=== PATIENT | male | born 1990 | race African-American/Black ===

== ENCOUNTER 2016-12-20 05:37 | Emergency (ER) | payer MEDICAID, OTHER ==
[~2016-12-20] VITALS: Ht 182.9 cm; Wt 90.0 kg
[~2016-12-20 05:37] MED LIST: BACTDS PO; CEPH-443 PO; HYDR-906 PO; IBUP-1542 PO; PEN500 PO
[2016-12-20 05:39] VITALS: Ht 182.9 cm; Wt 90.0 kg
[2016-12-20] MEDS ORDERED: CEPH-443 PO (06:15)
[2016-12-20] MEDS ORDERED: NAPR-260 PO (06:15)
[2016-12-20] MEDS ORDERED: SULF1TAB31 PO (06:15)
--- NOTE | 2016-12-20 06:21 | ERD ---
ER Documentation Chief Complaint Date/Time DATE: 12/20/16 TIME: 06:17 Chief Complaint abscess both axilla HPI 26 yo male comes in with bilateral axilla abscesses that started about a week ago. Patient states that he has 2 small areas on his right axilla and one on the left, slightly painful, achy, nonradiating and growing slowly in size. He has not had any fevers or chills. No vomiting. ROS All systems reviewed and are negative except as per history of present illness. Medications Home Meds Active Scripts Naproxen* (Naprosyn*) 500 Mg Tablet, 500 MG PO BID Y for PAIN AND/OR INFLAMMATION, #30 TAB Prov:MARQUES JACKSON PA-C 12/20/16 Sulfamethoxazole/Trimethoprim* (Bactrim Ds* Tablet) 1 Each Tablet, 1 TAB PO BID , #14 TAB Prov:MARQUES JACKSON PA-C 12/20/16 Cephalexin* (Keflex*) 500 Mg Capsule, 500 MG PO QID for 7 Days, CAP Prov:MARQUES JACKSON PA-C 12/20/16 Hydrocodone/Acetaminophen (Elkins 5-325 Tablet) 1 Each Tablet, 1 TAB PO Q6H Y for SEVERE PAIN LEVEL 7-10, #20 TAB Prov:CHARLES CHONG NP 01/28/16 Ibuprofen* (Motrin*) 600 Mg Tab, 600 MG PO Q6H Y for PAIN AND OR ELEVATED TEMP, #30 TAB Prov:CHARLES CHONG NP 01/28/16 Cephalexin* (Keflex*) 500 Mg Capsule, 500 MG PO QID for 10 Days, #39 CAP Prov:CHARLES CHONG NP 01/28/16 Sulfamethoxazole-Trimethoprim* (Bactrim* DS) 800-160 Mg Tab, 1 TAB PO BID for 5 Days, #19 TAB Prov:CHARLES CHONG NP 01/28/16 Sulfamethoxazole-Trimethoprim* (Bactrim* DS) 800-160 Mg Tab, 1 TAB PO BID for 7 Days, TAB Prov:MARQUES JACKSON PA-C 04/27/15 Cephalexin* (Keflex*) 500 Mg Capsule, 500 MG PO QID for 7 Days, CAP Prov:MARQUES JACKSON PA-C 04/27/15 Penicillin V Potassium* (Penicillin V K*) 500 Mg Tab, 500 MG PO QID for 10 Days , TAB Prov:MARQUES JACKSON PA-C 02/25/15 Allergies Allergies: Coded Allergies: No Known Allergy (Unverified , 01/28/16) PMhx/Soc History of Surgery: No Anesthesia Reaction: No Hx Neurological Disorder: No Hx Respiratory Disorders: No Hx Cardiac Disorders: No Hx Psychiatric Problems: No Hx Miscellaneous Medical Probl: No Hx Alcohol Use: No Hx Substance Use: No Hx Tobacco Use: No Smoking Status: Never smoker Physical Exam Vitals Vital Signs Date Time Temp Pulse Resp B/P Pulse Ox O2 Delivery O2 Flow Rate FiO2 12/20/16 05:39 97.3 78 20 128/65 100 Physical Exam General: Well-developed, well-nourished. The patient appears in no acute distress. HEENT: Head is normocephalic, atraumatic. No scleral icterus. Neck: Supple. Nontender. Lungs: Clear to auscultation. Normal air movement. Heart: Regular rate and rhythm. S1 and S2 are normal. No murmurs, gallops, or rubs. Abdomen: Nondistended. Extremities: No clubbing or cyanosis. Moving extremities x 4. No weakness. Neurologic: Alert and oriented 3. No focal deficits. Normal speech and gait. Skin: 2 1 cm areas that are indurated in the right axilla, there is one in the left, there is no erythema overlying the area, there is no fluctuance. No lymphatic streaking.. Procedures/MDM 26-year-old male presents with bilateral axillary abscesses, there is small in size, nonfluctuant. He has had this before, and I believe the patient can appropriately be treated and discharged with p.o. antibiotics. There is no lymphatic streaking, no systemic effects, no abscess underwent incision and drainage at this time. He was advised to do warm compresses, if he has any evidence of an abscess that becomes red, more swollen that may warrant incision and drainage, or worsening symptoms that he may return. Departure Diagnosis: Primary Impression: Abscess Condition: Good Patient Instructions: Abscess, Antiobiotic Treatment Only Additional Instructions: Follow up in 2 days in your clinic for wound check. MARQUES JACKSON PA-C Dec 20, 2016 06:21
== END 2016-12-20 06:58 | disposition home or self-care (01) ==
LOC: FTE 05:37
DX: L02.412 Cutaneous abscess of left axilla (principal); L02.411 Cutaneous abscess of right axilla
CPT/HCPCS: 99284

== ENCOUNTER 2017-03-02 04:40 | Emergency (ER) | payer MEDICAID, OTHER ==
[~2017-03-02] VITALS: Ht 190.5 cm; Wt 89.5 kg
[~2017-03-02 04:40] MED LIST changes: +NAPR-260 PO; -PEN500 PO; +PENI500T PO; +SULF1TAB31 PO
[2017-03-02 04:43] VITALS: Ht 190.5 cm; Wt 89.5 kg
--- NOTE | 2017-03-02 05:25 | ERD ---
ER Documentation Chief Complaint Date/Time DATE: 03/02/17 TIME: 05:19 Chief Complaint discharge from penis for 2 days HPI 26-year-old male presents here to emergency department for complaints of yellowish penile discharge started 2 days ago. Patient had sexual partner with the same symptoms. Patient denies any abdominal pain, flank pain. Patient denies any testicular pain. Patient denies any dysuria or hematuria. Patient denies any fever or chills ROS All systems reviewed and are negative except as per history of present illness. Medications Home Meds Active Scripts Naproxen* (Naprosyn*) 500 Mg Tablet, 500 MG PO BID Y for PAIN AND/OR INFLAMMATION, #30 TAB Prov:MARQUES JACKSON PA-C 12/20/16 Sulfamethoxazole/Trimethoprim* (Bactrim Ds* Tablet) 1 Each Tablet, 1 TAB PO BID , #14 TAB Prov:MARQUES JACKSON PA-C 12/20/16 Cephalexin* (Keflex*) 500 Mg Capsule, 500 MG PO QID for 7 Days, CAP Prov:MARQUES JACKSON PA-C 12/20/16 Hydrocodone/Acetaminophen ([place] 5-325 Tablet) 1 Each Tablet, 1 TAB PO Q6H Y for SEVERE PAIN LEVEL 7-10, #20 TAB Prov:CHARLES CHONG NP 01/28/16 Ibuprofen* (Motrin*) 600 Mg Tab, 600 MG PO Q6H Y for PAIN AND OR ELEVATED TEMP, #30 TAB Prov:CHARLES CHONG NP 01/28/16 Cephalexin* (Keflex*) 500 Mg Capsule, 500 MG PO QID for 10 Days, #39 CAP Prov:CHARLES CHONG NP 01/28/16 Sulfamethoxazole-Trimethoprim* (Bactrim* DS) 800-160 Mg Tab, 1 TAB PO BID for 5 Days, #19 TAB Prov:CHARLES CHONG NP 01/28/16 Sulfamethoxazole-Trimethoprim* (Bactrim* DS) 800-160 Mg Tab, 1 TAB PO BID for 7 Days, TAB Prov:MARQUES JACKSON PA-C 04/27/15 Cephalexin* (Keflex*) 500 Mg Capsule, 500 MG PO QID for 7 Days, CAP Prov:MARQUES JACKSON PA-C 04/27/15 Penicillin V Potassium* (Penicillin V K*) 500 Mg Tab, 500 MG PO QID for 10 Days , TAB Prov:MARQUES JACKSON PA-C 02/25/15 Allergies Allergies: Coded Allergies: No Known Allergy (Unverified , 01/28/16) PMhx/Soc Medical and Surgical Hx: pt denies Medical Hx, pt denies Surgical Hx History of Surgery: No Anesthesia Reaction: No Hx Neurological Disorder: No Hx Respiratory Disorders: No Hx Cardiac Disorders: No Hx Psychiatric Problems: No Hx Miscellaneous Medical Probl: No Hx Alcohol Use: No Hx Substance Use: No Hx Tobacco Use: No FmHx Family History: No coronary disease, No diabetes, No other Physical Exam Vitals Vital Signs Date Time Temp Pulse Resp B/P Pulse Ox O2 Delivery O2 Flow Rate FiO2 03/02/17 04:43 98.7 75 16 736/70 97 Physical Exam GENERAL: The patient is well developed and appropriate for usual state of health, in no apparent distress. CHEST: Clear to auscultation bilaterally. There are no rales, wheezes or rhonchi. HEART: Regular rate and rhythm. No murmurs, clicks, rubs or gallops. No S3 or S4. ABDOMEN: Soft, nontender and nondistended. Good bowel sounds. No rebound or guarding. No gross peritonitis. No gross organomegaly or masses. No Rao sign or McBurney point tenderness. BACK: No midline or flank tenderness. EXTREMITIES: Equal pulses bilaterally. There is no peripheral clubbing, cyanosis or edema. No focal swelling or erythema. Full range of motion. Grossly neurovascularly intact. NEURO: Alert and oriented. Cranial nerves 2-12 intact. Motor strength in all 4 extremities with 5/5 strength. Sensation grossly intact. Normal speech and gait. SKIN: There is no apparent rash or petechia. The skin is warm and dry. HEMATOLOGIC AND LYMPHATIC: There is no evidence of excessive bruising or lymphedema. No gross cervical, axillary, or inguinal lymphadenopathy. : No penile discharge noted, no scrotal redness or tenderness noted. Results 24 hrs Current Medications Medications (Trade) Dose Ordered Sig/Ирина Route PRN Reason Start Time Stop Time Status Last Admin Dose Admin Ceftriaxone Sodium (Rocephin) 250 mg ONCE ONCE IM 03/02/17 05:30 03/02/17 05:31 Azithromycin (Zithromax) 1,000 mg ONCE ONCE PO 03/02/17 05:30 03/02/17 05:31 IM Rocephin and azithromycin was given here in the emergency department for treatment for urethritis, possibly caused by STD. Urine GC chlamydia results pending at this time. Procedures/MDM Medical decision making: Patient symptoms was likely is consistent with urethritis caused by STDs. No symptoms of orchitis, testicular torsion. Patient was treated here in the emergency department, was advised to avoid sexual intercourse until cleared with possible infection in the course of 1 week. Patient was advised to follow with primary care doctor in 2-3 days. Patient was advised to return to emergency department for any worsening symptoms. Disposition: Home. Stable Departure Diagnosis: Primary Impression: Urethritis Condition: Stable Patient Instructions: Urethritis, Male (Gc Vs. Chlam) CHARLES CHONG NP Mar 02, 2017 05:25
[2017-03-02] MEDS ORDERED: AZITHROMYCIN 250 MG TAB PO ONE (05:30)
[2017-03-02] MEDS ORDERED: CEFTRIAXONE 250 MG INJ IM ONE (05:30)
== END 2017-03-02 06:05 | disposition home or self-care (01) ==
LOC: FTE 04:40
DX: N34.2 Other urethritis (principal)
CPT/HCPCS: 87591; 96372; J0696; Z7502; Z7610